=== PATIENT | female | born 1950 | race Caucasian/White ===

== ENCOUNTER 2017-02-03 11:28 | Emergency (ER) | payer MEDICARE, BC ==
[~2017-02-03] VITALS: Ht 172.7 cm; Wt 72.0 kg
[2017-02-03 12:05] LABS: BASOPHILS % (AUTO) 0 % (0-2); EOSINOPHILS % (AUTO) 1 % (0-4); LYMPHOCYTES # (AUTO) 1.5 X10^3; MEAN CORPUSCULAR VOLUME 93 FL (80-100); MEAN PLATELET VOLUME 9.2 FL (6.0-9.5); MONOCYTES # (AUTO) 0.4 X10^3; MONOCYTES % (AUTO) 7 % (3-11); NEUTROPHILS # (AUTO) 4.1 X10^3; NEUTROPHILS % (AUTO) 67 % (51-67); PLATELET COUNT 240 10^3uL (150-450); WHITE BLOOD COUNT 6.09 10^3uL (4.0-11.0)
[2017-02-03 12:11] LABS: MEAN CORPUSCULAR HEMOGLOBIN 31.5 PG (26.0-34.0)
[2017-02-03 12:16] LABS: ALBUMIN 4.5 g/dL (3.4-5.0); ALKALINE PHOSPHATASE 75 U/L (38-126); ANION GAP 11.1 MEQ/L (3-15); BUN/CREATININE RATIO 18 (10-20); CALCULATED IONIZED CALCIUM 4.2 mg/dL (3.8-4.6); TOTAL PROTEIN 7.7 g/dL (6.4-8.5)
--- NOTE | 2017-02-03 12:55 | NUR ---
DR. NORIEGA ATTEMPTING TO CONTACT [facility] (DR. RODNEY) - NOW WAITING ON RETURN CALL.
[2017-02-03] MEDS ORDERED: SODIUM CHLORIDE FLUSH 3 ML SYR IV PRN (13:20)
[2017-02-03] MEDS ORDERED: SODIUM CHLORIDE FLUSH 10 ML SYR IV PRN (13:20)
--- NOTE | 2017-02-03 13:40 | NUR ---
Called [facility] and spoke to "Rox" who said they weren't aware of Dr. Yusuf having accepted our patient for transfer. She said they would check on it and call us back.
--- NOTE | 2017-02-03 14:18 | NUR ---
Placed second call to [facility] and spoke with "Florina" who said she would call back in next 15-20 minutes.
--- NOTE | 2017-02-03 14:25 | NUR ---
Florina RN with [facility] calls back with bed number for this patient and phone number for [id number] report.
--- NOTE | 2017-02-03 14:28 | NUR ---
[facility] ([phone][facility] to give [id number] report. Was informed that the nurse that would be taking report was busy with a transfer. Was asked to call back in "15-20 minutes".
--- NOTE | 2017-02-03 14:42 | NUR ---
Patient informed of reason for delay.
--- NOTE | 2017-02-03 15:02 | NUR ---
Patient report has been given to [facility] Signal Supervisor (Rafael) who assumes care of patient for transfer to [facility].
--- NOTE | 2017-02-03 15:05 | NUR ---
Contacted [facility] (Ameya) who attempted to transfer me to Dori who was to take report - no answer.
--- NOTE | 2017-02-03 15:13 | NUR ---
Contacted Ameya at [facility] and asked her to have Dori call [place] [facility] when she was able.
--- NOTE | 2017-02-03 15:50 | NUR ---
Received call from Aneudy Pineda RN requesting pt report. Pt reports given and questions answered.
[2017-02-03 15:59] VITALS: BP 153/63
== END 2017-02-03 15:14 | disposition short-term general hospital (02) ==
LOC: EDUNIT# 11:28 → ED 11:30
DX: I20.9 Angina pectoris, unspecified (principal); Z95.820 Peripheral vascular angioplasty status with implants and grafts; Z87.891 Personal history of nicotine dependence
CPT/HCPCS: 36415; 71010; 80053; 84484; 85025; 93005; 93010; 99284; 99285

== ENCOUNTER → 2017-02-03 | Outpatient (CLI) | payer MEDICARE, BC | LOC: EMS 15:03 | PROVIDERS: ATTEND Emergency Medicine | DX: R07.89 Other chest pain (principal); I20.9 Angina pectoris, unspecified ==

== ENCOUNTER → 2017-02-26 | Outpatient (CLI) | payer MEDICARE, BC ==
[~2017-02-26] MED LIST: ASPI-586 PO; ATOR10TA56 PO; CALC-408 PO; CHOL200018 PO; FISH OIL500 M1 PO; LACT1CAP62 PO; METO-272 PO; METO25TA2 PO; MULT-642 PO; SMV10T PO
--- NOTE | 2017-02-27 09:33 | Diagnostic Imaging Report ---
INDICATION: Screening. COMPARISON: November 2014. The current digital study was evaluated with a Computer Aided Detection (CAD). FINDINGS: The small intramammary lymph nodes previously noted in the tail of both breasts are unchanged. No masses have developed. There are no clustered calcifications. No architectural distortion. IMPRESSION: Stable bilateral mammogram. Routine followup recommended. ACR BI-RADS Category 2: Benign findings. Result letter will be mailed to the patient. Note: At least 10% of breast cancer is not imaged by mammography. Dictated by: Dictated on workstation # [id number]
== END ==
LOC: RAD 10:54
PROVIDERS: ATTEND Family Medicine
DX: Z12.31 Encounter for screening mammogram for malignant neoplasm of breast (principal)

== ENCOUNTER → 2017-04-17 | Outpatient (CLI) | payer MEDICARE, BC | LOC: RT 09:22 | PROVIDERS: ATTEND Internal Medicine | DX: I25.10 Atherosclerotic heart disease of native coronary artery without angina pectoris (principal) | CPT/HCPCS: 93005 ==